=== PATIENT | female | born 1995 | race Caucasian/White ===

== ENCOUNTER 2017-05-10 23:52 | Emergency (ER) | payer BC, OTHER ==
[~2017-05-10] VITALS: Ht 167.6 cm; Wt 67.7 kg
[2017-05-10 23:55] VITALS: TEMP 37.2; Ht 167.6 cm; Wt 67.7 kg
[2017-05-11] MEDS ORDERED: LIDOCAINE/EPINEPH/TETRACAINE 1 EA SYR EXT STA (00:04)
[2017-05-11] MEDS ORDERED: LIDOCAINE/EPINEPH/TETRACAINE 1 EA SYR ONE (00:05)
[2017-05-11] MEDS ORDERED: HYDROCODONE/ACETAMIN 5/325MG TAB PO ONE (00:15)
[2017-05-11] MEDS ORDERED: LIDOCAINE/EPINEPHRINE 1% 20 ML VIAL INFIL ONE (00:15)
[2017-05-11] MEDS ORDERED: BCPILLS PO (00:24)
[2017-05-11] MEDS ORDERED: CETI10TA84 PO (00:24)
[2017-05-11] MEDS ORDERED: HYDR-5688 PO (03:54)
[2017-05-11] MEDS ORDERED: ONDANSETRON HOME PACK 4MG OD TAB PO ONE (04:00)
[2017-05-11] MEDS ORDERED: NORCO 5/325MG HOME PACK PO ONE (04:00)
[2017-05-11 04:04] VITALS: BP 138/79; PULSE 79; O2SAT 98
--- NOTE | 2017-05-11 06:30 | DIAGNOSTIC IMAGING REPORT ---
HEAD CT NONCONTRAST CT DOSE: 1574.13 mGy.cm HISTORY: Left side trauma TECHNIQUE: Multiaxial CT images of the head were performed without the use of intravenous contrast. Automated exposure control was utilized for this study. A dose lowering technique was utilized adhering to the principles of ALARA. Comparison: None. Findings: The paranasal sinuses and mastoid air cells are clear. The calvarium and skull base are intact. The ventricles and sulci are within normal limits. There is no mass, hematoma, midline shift, or acute infarct. Left frontal scalp swelling and a small left lateral scalp laceration. Impression: No acute intracranial abnormality. Left-sided scalp injury. Electronically signed by: Oscar Moreno M.D. 05/11/2017 6:29 AM Dictated Date/Time: 05/11/2017 6:25 AM
--- NOTE | 2017-05-11 07:05 | DIAGNOSTIC IMAGING REPORT ---
CERVICAL SPINE CT CT DOSE: HISTORY: Left side trauma TECHNIQUE: Multiaxial CT images of the cervical spine were performed and reformatted in the sagittal and coronal plane without the use of contrast. A dose lowering technique was utilized adhering to the principles of ALARA. COMPARISON: None. FINDINGS: No fractures. No subluxation. Prevertebral soft tissues and the C1-C2 interval are intact. No pneumothorax. IMPRESSION: No fractures within the cervical spine. Electronically signed by: Oscar Moreno M.D. 05/11/2017 7:03 AM Dictated Date/Time: 05/11/2017 7:01 AM
--- NOTE | 2017-05-11 07:15 | DIAGNOSTIC IMAGING REPORT ---
MAXILLOFACIAL CT CT DOSE: HISTORY: Left-sided facial injury. Left side trauma TECHNIQUE: Multiaxial CT images of the maxillofacial region were performed and reformatted in the coronal plane without the use of contrast. A dose lowering technique was utilized adhering to the principles of ALARA. COMPARISON: None. FINDINGS: The visualized cervical spine, skull base, pterygoid plates, nasal bones, lamina papyracea, orbital floors, mandible, and zygomatic arches are intact. No fractures. Left periorbital soft tissue swelling. The globes and retrobulbar fat are intact. IMPRESSION: No fractures within the maxillofacial region. Left periorbital soft tissue swelling. Electronically signed by: Oscar Moreno M.D. 05/11/2017 7:14 AM Dictated Date/Time: 05/11/2017 7:11 AM
--- NOTE | 2017-05-11 08:15 | DIAGNOSTIC IMAGING REPORT ---
LEFT WRIST 4 VIEWS HISTORY: Left wrist injury COMPARISON: None. FINDINGS: There is no fracture or dislocation. Soft tissues are unremarkable. No radiopaque foreign bodies. IMPRESSION: No fractures. Electronically signed by: Oscar Moreno M.D. 05/11/2017 8:14 AM Dictated Date/Time: 05/11/2017 8:11 AM
--- NOTE | 2017-05-11 08:16 | DIAGNOSTIC IMAGING REPORT ---
CHEST 2 VIEWS ROUTINE HISTORY: Left-sided chest trauma. Left chest pain. COMPARISON: None. FINDINGS: The lungs are clear. Cardiac silhouette is normal in size. No pleural effusions. No pneumothorax. No rib fractures. IMPRESSION: No acute process. Electronically signed by: Oscar Moreno M.D. 05/11/2017 8:15 AM Dictated Date/Time: 05/11/2017 8:14 AM
--- NOTE | 2017-05-11 08:17 | DIAGNOSTIC IMAGING REPORT ---
LEFT SHOULDER 3 VIEWS HISTORY: Left shoulder pain. Left side trauma COMPARISON: None. FINDINGS: There is no fracture or dislocation. The left clavicle is intact. Left supraclavicular soft tissue swelling. No radiopaque foreign bodies. IMPRESSION: No fracture or dislocation within the left shoulder. Electronically signed by: Oscar Moreno M.D. 05/11/2017 8:16 AM Dictated Date/Time: 05/11/2017 8:15 AM
--- NOTE | 2017-05-12 07:21 | EMERGENCY ROOM VISIT NOTE ---
History First contact with patient: 23:58 Chief Complaint: HEAD INJURY (MINOR) Stated Complaint: LACERATION - LEFT EYE AREA History of Present Illness The patient is a 21 year old female who presents to the Emergency Room with complaints of multiple injuries after an accident at [facility] about 30 minutes ago. The patient states that she was dancing for the event at the [facility], when a long metal chain fell from the rafters of the arena, roughly 60 feet, onto the floor where it struck her along the left side shoulder, neck, head, and face. The patient did not reportedly lose consciousness or have seizure-like activity before or after the event. She had immediate bleeding and pain. She was rapidly attended to by on scene medical staff and was brought to the department by ambulance for evaluation. The patient is primarily complaining of head, neck, and shoulder pain. She is also with discomfort to her left wrist. Patient states she is usually healthy and only takes control. She does not take blood thinners and denies chance of . No drug or alcohol use. Tetanus is reportedly up-to-date. Review of Systems More than 10 systems were reviewed and otherwise negative with the exception of history of present illness. Past Medical/Surgical History No chronic medical disease Family History No pertinent family history Social History Smoking Status: Never Smoker Occupation Status: [employer] student Current/Historical Medications Scheduled Control Pills ( Control Pills), 1 TAB PO QAM Cetirizine (Zyrtec), 10 MG PO QAM Scheduled PRN Hydrocodone/Acetaminophen 5MG/325MG ([place] 5MG/325MG), 1-2 TABLET PO Q4H PRN for Pain Physical Exam Vital Signs Date Time Temp Pulse Resp B/P (MAP) Pulse Ox O2 Delivery O2 Flow Rate FiO2 05/11/17 04:04 79 16 138/79 98 05/11/17 02:50 75 18 140/77 98 Room Air 05/11/17 01:44 75 18 127/86 99 Room Air 05/10/17 23:55 37.2 91 18 139/94 100 Room Air 05/10/17 23:55 20 100 Physical Exam VITALS: Vitals are noted on the nurse's note and reviewed by myself. Vital signs stable. GENERAL: White female who appears in moderate distress secondary to her stated complaint. She is tearful but cooperative. HEAD: Extensive left sided periorbital abrasion and edema. This abrasion extends into the left side parietal scalp where a linear 3.0 cm laceration is noted. EARS: External ear normal. External auditory canals clear, tympanic membranes pearly nelson without erythema or effusion bilaterally. No hemotympanum. EYES: Pupils equal round and reactive to light and accommodation. Conjunctivae without injection, sclerae without icterus. Extraocular movements intact. No hyphema. Notable swelling appreciated to the left periorbital space with ecchymosis. No corneal foreign body, abrasion, or globe injury noted. The lateral aspect of the left upper eyelid has a 7 mm J-shaped through and through laceration. The lower left eyelid is with a horizontal 4 mm laceration. There is additionally a fairly linear 3.5 cm laceration through the left eyelid. NOSE: Patent, turbinates without inflammation or discharge. No epistaxis MOUTH: Mucous membranes moist. Tonsils are not enlarged. Pharynx without erythema, blood, or exudate. Uvula midline. Airway patent. Dentition in good repair. NECK: Supple without nuchal rigidity. No lymphadenopathy. No thyromegaly. Markedly ecchymosis is appreciated across the left side lateral neck in a vertical fashion into the left scapula. This area is tender. There is no distinct midline cervical tenderness. HEART: Regular rate and rhythm without murmurs gallops or rubs. LUNGS: Clear to auscultation bilaterally without wheezes, rales or rhonchi. No retractions or accessory muscle use. ABDOMEN: Positive normal bowel sounds x 4. Soft, nontender, without masses or organomegaly. No guarding or rebound tenderness. MUSCULOSKELETAL: Tenderness is appreciated through the superior aspect of the left scapula which is ecchymotic. No gross hematoma appreciated. The patient does have range of motion of the left shoulder and left elbow. There is tenderness of the distal radius of the left wrist. No snuffbox tenderness. No tenderness of the thoracic or lumbar spine. No paresthesias appreciated throughout the extremities. NEURO: Patient was alert and oriented to person place and time. CN II through XII grossly intact. GCS 15. No focal neurological deficits. Deep tendon reflexes 2+ throughout. Medical Decision & Procedures ER Provider Diagnostic Interpretation: HEAD CT NONCONTRAST CT DOSE: 1574.13 mGy.cm HISTORY: Left side trauma TECHNIQUE: Multiaxial CT images of the head were performed without the use of intravenous contrast. Automated exposure control was utilized for this study. A dose lowering technique was utilized adhering to the principles of ALARA. Comparison: None. Findings: The paranasal sinuses and mastoid air cells are clear. The calvarium and skull base are intact. The ventricles and sulci are within normal limits. There is no mass, hematoma, midline shift, or acute infarct. Left frontal scalp swelling and a small left lateral scalp laceration. Impression: No acute intracranial abnormality. Left-sided scalp injury. MAXILLOFACIAL CT CT DOSE: HISTORY: Left-sided facial injury. Left side trauma TECHNIQUE: Multiaxial CT images of the maxillofacial region were performed and reformatted in the coronal plane without the use of contrast. A dose lowering technique was utilized adhering to the principles of ALARA. COMPARISON: None. FINDINGS: The visualized cervical spine, skull base, pterygoid plates, nasal bones, lamina papyracea, orbital floors, mandible, and zygomatic arches are intact. No fractures. Left periorbital soft tissue swelling. The globes and retrobulbar fat are intact. IMPRESSION: No fractures within the maxillofacial region. Left periorbital soft tissue swelling. CERVICAL SPINE CT CT DOSE: HISTORY: Left side trauma TECHNIQUE: Multiaxial CT images of the cervical spine were performed and reformatted in the sagittal and coronal plane without the use of contrast. A dose lowering technique was utilized adhering to the principles of ALARA. COMPARISON: None. FINDINGS: No fractures. No subluxation. Prevertebral soft tissues and the C1-C2 interval are intact. No pneumothorax. IMPRESSION: No fractures within the cervical spine. CHEST 2 VIEWS ROUTINE HISTORY: Left-sided chest trauma. Left chest pain. COMPARISON: None. FINDINGS: The lungs are clear. Cardiac silhouette is normal in size. No pleural effusions. No pneumothorax. No rib fractures. IMPRESSION: No acute process. LEFT SHOULDER 3 VIEWS HISTORY: Left shoulder pain. Left side trauma COMPARISON: None. FINDINGS: There is no fracture or dislocation. The left clavicle is intact. Left supraclavicular soft tissue swelling. No radiopaque foreign bodies. IMPRESSION: No fracture or dislocation within the left shoulder. LEFT WRIST 4 VIEWS HISTORY: Left wrist injury COMPARISON: None. FINDINGS: There is no fracture or dislocation. Soft tissues are unremarkable. No radiopaque foreign bodies. IMPRESSION: No fractures. Medications Administered Medications (Trade) Dose Ordered Sig/María Route Start Time Stop Time Status Last Admin Dose Admin Tetracaine/ Epinephrine/ Lidocaine (L.e.t. Gel 4%/ 1:100/0.5%) 1 ea STK-MED ONCE .ROUTE 05/11/17 00:05 05/11/17 00:06 DC 05/11/17 00:16 1 EA Acetaminophen/ Hydrocodone Bitart ([place] 5/325 Tab) 2 tab NOW ONCE PO 05/11/17 00:15 05/11/17 00:16 DC 05/11/17 00:19 2 TAB Acetaminophen/ Hydrocodone Bitart ([place] 5/325mg Home Pack) 1 homepack UD ONCE PO 05/11/17 04:00 05/11/17 04:01 DC 05/11/17 04:08 1 HOMEPACK Ondansetron HCl (ZOFRAN ODT 4MG Home Pack) 1 homepack UD ONCE PO 05/11/17 04:00 05/11/17 04:01 DC 05/11/17 04:07 1 HOMEPACK Procedure Laceration repair. Patient elects to have their laceration repaired. Verbal consent was obtained to perform the procedure. There is an abundance of materials available for the procedure. Patient is not allergic to latex. Using sterile technique the wound was cleaned with Betadine. The area was sterilely draped. LET gel was utilized to anesthetize the left eyebrow laceration. 4 mL of 1% buffered lidocaine with epinephrine was used to anesthetize the left scalp laceration. Once the patient was anesthetized, the wounds were copiously irrigated under pressure with sterile saline. The wounds were explored and there were no deep structures injured such as tendons, bone, or significant blood vessels. The left eyebrow laceration was repaired utilizing 8 simple interrupted 6-0 Ethilon sutures. The scalp laceration was repaired using 4 morgan with the wound edges being well approximated. Hemostasis was achieved. The areas were cleaned with sterile saline and dressed with bacitracin ointment and bandage. Patient tolerated the procedure well without complications. Blood loss was negligible. ED Course Physical exam and history were performed. Nursing notes, EMR, and Medication List were personally reviewed. Patient appears to have been injured by a falling metal chain at [facility] just prior to arrival. The episode resulted in obvious injury to the left side shoulder, neck, and head. The patient was given oral Vicodin here in the department. CT scans and plain films were performed. The patient was placed on the monitor. The patient's CT scans are as above and were reviewed by myself and radiology. She does not appear to have an acute fracture or bleed. Plain films are also without acute findings per my radiology's interpretation. The patient did have significant improvement of her discomfort after the oral Vicodin. The patient's lacerations were repaired as above, and she tolerated this well. Due to the patient's injuries she had a large amount of dried blood in an around the left eye. I spent a significant amount of time cleaning and appropriately evaluating this area. On close examination she does have a through and through eyelid laceration. This is very concerning from a functional and cosmetic perspective. I discussed the case with my attending physician, Dr. Minor, who remain closely involved in care and decision making. Due to the potential complications from this type of injury it was felt necessary for the patient to have evaluation by a plastic surgeon. Unfortunately we do not have this specialty available to us tonight in this department. Over the course of a few hours of ER stay, the patient's family did arrive from near the [place] area. I discussed options of care at length with the family , and they are comfortable taking the patient by personal vehicle to either [facility] or to [facility]. I did contact [facility] plastic surgeon, Dr Domínguez, who indicated they do not have clinic hours this morning (Saturday), however they are capable of caring for the patient either with plastic surgery or oculoplastics through their ER. Family was comfortable with taking the patient to her she has this is on their way home. Overall the patient does seem well for discharge from a trauma perspective. She has significant contusions as well as head injury and lacerations. I will provide her a course of Vicodin for pain control, as well as wound care instructions. The patient is to travel to [place] for Plastics care. If they have any complications in route they are to stop the closest available hospital. The patient was pleased with this plan and rated her discomfort a 2/ 10 at the time of departure. The chart was completed utilizing [employer] Voice Recognition Software. Grammatical errors, random word insertions, pronoun errors, and incomplete sentences are an occasional consequence of this system due to software limitations, ambient noise, and hardware issues. Any formal questions or concerns about the content, text, or information contained within the body of this dictation should be directly addressed to the provider for clarification. . Medical Decision Differential diagnosis: Etiologies such as fracture, dislocation, intra-abdominal, pneumothorax, intrathoracic , intracranial, neurologic, as well as other traumatic pathologies were entertained. Impression Primary Impression: Closed head injury Additional Impressions: Forehead laceration Struck by falling object Scalp laceration Shoulder injury Eyelid laceration Departure Information Dispostion Home / Self-Care Condition GOOD Prescriptions Hydrocodone/Acetaminophen 5MG/325MG ([place] 5MG/325MG) Tab 1-2 TABLET PO Q4H Y for Pain, #24 TAB For Initial Treatment Prov: Devang Borwn PA-C 05/11/17 Forms HOME CARE DOCUMENTATION FORM, IMPORTANT VISIT INFORMATION Patient Instructions [facility] Additional Instructions You were seen and evaluated today on an emergency basis only. This is not a substitute for, or an effort to provide, complete comprehensive medical care. It is not possible to recognize and treat all injuries or illnesses in a single emergency department visit. Please travel to [facility] for further care in regards to the left eyelid laceration. We spoke with Dr Domínguez directly, and a member of the plastic surgery team will be available to evaluate your injury. For baseline pain relief you may alternate ibuprofen and acetaminophen every 4 hours for pain control. Take 600 mg ibuprofen (Advil) and then 4 hours later take 1000 mg acetaminophen (Tylenol). Do not take more than 3000 mg acetaminophen in a single day. [place] (hydrocodone/acetaminophen) 5/325 mg ONE or TWO every 4-6 hours as needed for worsening breakthrough pain. Do not drink or drive on [place]. This medication will likely make you tired. Do not take [place] and Tylenol at the same time as both contain acetaminophen. [place] may cause constipation. You may wish to take an [id number] stool softener like Colace if this occurs. Zofran 4 mg ODT: Dissolve 1 tablet every 6 hrs as needed for nausea. Keep wound clean and dry. Do not allow any crusting or dried blood to accumulate on sutures. If this occurs, use a mild soap/water on a Q-tip to clean the wound. Do not use Peroxide to clean the wound as this can delay healing Use an antibiotic ointment like Bacitracin for 3-4 days, then let wound dry. You may bathe and shower as normal, but DO NOT SOAK the wound. Suture removal in about 6-7 days with your Family Doctor or in the ER. Staple removal in about 10 days. Return sooner for any signs of infection, increasing redness, swelling, or drainage. You are welcome to return to the emergency department anytime with new, worsening, or concerning symptoms. Problem Qualifiers
== END 2017-05-11 04:12 | disposition home or self-care (01) ==
LOC: EDBD 23:52 → C.EDC 23:53 → C.EDA 05-11 04:12
DX: S01.81XA Laceration without foreign body of other part of head, initial encounter (principal); S01.01XA Laceration without foreign body of scalp, initial encounter; S49.92XA Unspecified injury of left shoulder and upper arm, initial encounter; S01.112A Laceration without foreign body of left eyelid and periocular area, initial encounter; W22.8XXA Striking against or struck by other objects, initial encounter; Y93.41 Activity, dancing; Y99.8 Other external cause status; Y92.39 Other specified sports and athletic area as the place of occurrence of the external cause